=== PATIENT | female | born 1970 | race Caucasian/White ===

== ENCOUNTER 2017-06-24 06:19 | Day surgery (SDC) | payer OTHER ==
[~2017-06-24] VITALS: Ht 162.6 cm; Wt 65.2 kg
[2017-06-24] VITALS (13 sets, daily range): BP systolic 106–127; BP diastolic 66–84; PULSE 64–79; RESP 12–28; Ht 162.6 cm; Wt 65.2 kg
[~2017-06-24 06:19] MED LIST: CEFAZOLIN 1 GM/50 ML (PMX) 50 ML IVPB SCH; SOD CHLORIDE 0.9% 1,000 ML IV SCH
[2017-06-24] MEDS ORDERED: POLYMYXIN/BACITRACIN 1L IRRIG ONE (06:43)
[2017-06-24] MEDS ORDERED: BUPIVACAINE 0.25% (MPF) 30 ML INJ ONE (06:45)
[2017-06-24] MEDS ORDERED: MIDAZOLAM 1 MG/ML 2 ML INJ ONE (07:30)
[2017-06-24] MEDS ORDERED: PROPOFOL 20 ML ONE (07:30)
[2017-06-24] MEDS ORDERED: GLYCOPYRROLATE 0.4 MG INJ ONE (07:30)
[2017-06-24] MEDS ORDERED: DEXAMETHASONE 4 MG/ML 1 ML INJ ONE (07:30)
[2017-06-24] MEDS ORDERED: FENTAnyl 50 MCG/ML VIAL ONE (07:30)
[2017-06-24] MEDS ORDERED: NEOSTIGMINE 3 MG/3 ML SYRINGE ONE (07:30)
[2017-06-24] MEDS ORDERED: CEFAZOLIN 1 GM INJ ONE (07:30)
[2017-06-24] MEDS ORDERED: ROCURONIUM 50 MG INJ ONE (07:30)
[2017-06-24] MEDS ORDERED: ONDANSETRON 4 MG INJ ONE (07:30)
[2017-06-24] MEDS ORDERED: KETOROLAC 30 MG INJ ONE (07:32)
[2017-06-24] MEDS ORDERED: PROPOFOL 100 ML ONE (07:59)
[2017-06-24] MEDS ORDERED: MEPERIDINE 25 MG INJ IV PRN ×2 (08:30)
[2017-06-24] MEDS ORDERED: LABETALOL HCL 20MG INJ IV PRN ×2 (08:30)
[2017-06-24] MEDS ORDERED: OXYCODONE/ACETAMINOPHEN (5/325) TAB PO PRN ×4 (08:30)
[2017-06-24] MEDS ORDERED: ALBUTEROL 0.083% (NEB) 2.5 MG/3 ML AMP HHN PRN ×2 (08:30)
[2017-06-24] MEDS ORDERED: TRIMETHOBENZAMIDE 100 MG/ML VIAL IM PRN ×2 (08:30)
[2017-06-24] MEDS ORDERED: hydrALAzine 20 MG INJ IV PRN ×2 (08:30)
[2017-06-24] MEDS ORDERED: EPHEDrine SULFATE 50 MG/5 ML SYG IV PRN ×2 (08:30)
[2017-06-24] MEDS ORDERED: MIDAZOLAM 1 MG/ML 2 ML INJ IV PRN ×2 (08:30)
[2017-06-24] MEDS ORDERED: HYDROmorphONE (0.2 MG/ML) 10ML SYG IV PRN ×6 (08:30)
[2017-06-24] MEDS ORDERED: DIPHENHYDRAMINE 50 MG INJ IV PRN ×2 (08:30)
[2017-06-24] MEDS ORDERED: IPRATROPIUM (NEB) 0.5 MG/2.5 ML AMP HHN PRN ×2 (08:30)
[2017-06-24] MEDS ORDERED: FENTAnyl 50 MCG/ML VIAL IV PRN ×6 (08:30)
[2017-06-24] MEDS ORDERED: ONDANSETRON 4 MG INJ IV PRN ×2 (08:30)
[2017-06-24] MEDS ORDERED: SUGAMMADEX SODIUM 200 MG/2 ML VIAL IV ONE (08:34)
--- NOTE | 2017-06-24 08:42 | OPR ---
Date/Time of Note Date/Time of Note DATE: 06/24/17 TIME: 08:37 Operative Report Procedure Date: Jun 24, 2017 Preoperative Diagnosis incarcerated ventral hernia Postoperative Diagnosis same Operation/Procedure Performed 1. lap incarcerated ventral her[place] cpt 99670 2. intraabdominal mesh implantation cpt code 56235 3. therapeutic injection of subcutaneous local anesthesia cpt code 06914 Surgeon see signature line [employer] none Anesthesia Type: general Estimated Blood Loss: 0 - 10 ml's Transfusion none Specimen none Grafts/Implants none Complications none Pt Condition Post Procedure: stable Indications This is a 47-year-old female with an incarcerated ventral hernia. She is also had a history of abdominoplasty. She requests surgical repair. Risks alternatives benefits and percent were discussed the patient. Patient's best understanding consents to the operation. Procedure Description Patient is taken to the OR and prepped and draped in usual sterile fashion. Surgical timeout was performed. IV antibiotics given. Transverse incision is made over the left upper quadrant with a 15 blade. Using 5 mm optical trocar optical entry is performed. Pneumoperitoneum is established. Left flank 12 mm optical trocar and left lower quadrant 5 mm optical trochars are placed under direct visualization. Upon initial inspection there is incarcerated hernia contents from the ventral hernia. This is excised using laparoscopic harmonic suki. The hernia defect is small and is covered with underlay mesh with approximate 4-5 cm of coverage in all directions. This is secured in place with secure strap. There is good hemostasis. Ports removed under direct visualization. Port sites are closed with interrupted and running 4-0 Monocryl. Therapeutic subcutaneous local anesthesia was injected throughout the incision sites. Dry dressings were applied. Marcus RUSSELL Jun 24, 2017 08:42
[2017-06-24] MEDS ORDERED: HYDROCODONE/APAP (5/325) TAB PO ONE (09:00)
== END 2017-06-24 10:20 | disposition home or self-care (01) ==
LOC: SDS 06:19
PROVIDERS: ATTEND Surgery
DX: K43.6 Other and unspecified ventral hernia with obstruction, without gangrene (principal)
CPT/HCPCS: 49561; 49568; C1781; J0690; J1100; J1885; J2250; J2405; J3010; Z7512; Z7610; J2710